=== PATIENT | female | born 1990 | race Caucasian/White ===

== ENCOUNTER 2017-04-06 09:56 | Emergency (ER) | payer BC ==
--- NOTE | 2017-04-06 10:26 | UC ---
Skin Complaint HPI - HPI Summary HPI Summary: 26 y/o female s/p trip to [facility] with new itchy "bites" on ankles, calves, arms. Sparing trunk/ chest, upper thigh. No fever, chills, other than itchy feeling normal. wass on honeymoon, possible chance of getting in future. h/o UC, last colonoscopy negative. no meds. - History of Current Complaint Time Seen by Provider: 04/06/17 10:25 Stated Complaint: SKIN COMPLAINT Hx Obtained From: Patient Hx Last Menstrual Period: 06/08/16 Onset/Duration: Sudden Onset, Lasting Days Skin Exposure Onset/Duration: Days Ago Onset Severity: Mild Current Severity: Mild - Allergy/Home Medications Allergies/Adverse Reactions: Allergies Allergy/AdvReac Type Severity Reaction Status Date / Time Sulfa Antibiotics Allergy Unknown Unknown Verified 04/06/17 10:22 Reaction Details Codeine Allergy chest Verified 04/06/17 10:22 tightness Home Medications: Home Medications Acetaminophen [Acetaminophen Extra Stren] 500 mg PO Q6H PRN 04/06/17 [History Confirmed 04/06/17] Review of Systems Constitutional: Negative Skin: Rash - bite pattern ENT: Negative Respiratory: Negative Cardiovascular: Negative Gastrointestinal: Negative Genitourinary: Negative Motor: Negative Neurovascular: Negative Musculoskeletal: Negative Neurological: Negative Psychological: Negative All Other Systems Reviewed And Are Negative: Yes PMH/Surg Hx/FS Hx/Imm Hx Previously Healthy: Yes - ? UC - Surgical History Surgical History: Yes Surgery Procedure, Year, and Place: wisdom teeth - Family History Known Family History: Positive: Respiratory Disease - asthma - Social History Alcohol Use: Occasionally Substance Use Type: None Smoking Status (MU): Never Smoked Tobacco Physical Exam Triage Information Reviewed: Yes Appearance: Well-Appearing, No Pain Distress, Well-Nourished Eye Exam: Normal Neck exam: Normal Abdomen Description: Positive: Other: - no rash on abd, trunk, chest Neurological Exam: Normal Psychological Exam: Normal Skin: Positive: rashes - follicular raised erythematous papules in random pattern on lower legs, lower arms, and lower neck/ upper back. Sparing of trunk, thighs, abdomen, face. non tender to palpation, no discharge noted. + firm head over some. all small, < or = 1mm. Course/Dx - Course Course Of Treatment: consistent with insect bites. Patient concerned about sand fleas, educated on treatment of snad fleas. hydrocortisone cream given, educated on Zika virus with possible in future. F/U with PCP if symptoms not relieved within 3-4 days - Differential Diagnoses - Skin Complaint Differential Diagnoses: Contact Dermatitis, Drug Rash, Eczema, Frostbite, Poison Margaret - Diagnoses Provider Diagnoses: insect bites Discharge - Discharge Plan Condition: Good Disposition: HOME Prescriptions: Hydrocortisone 1% CREAM* 1 applic TOPICAL TID #1 tube Patient Education Materials: Insect Bite or Sting (ED) Additional Instructions: - hydrocortisone cream over bites 2-3 times a day - benadryl to help sleep at night if itchy - Follow up within PCP within 3-4 days if no improvement - Discuss with [employer] prior to getting - Return with fever, chills, increasing rash
[2017-04-06 10:28] VITALS: BP 110/71
== END 2017-04-06 10:54 | disposition home or self-care (01) ==
LOC: UCCORT 09:56
DX: S80.862A Insect bite (nonvenomous), left lower leg, initial encounter (principal); S80.861A Insect bite (nonvenomous), right lower leg, initial encounter; S50.862A Insect bite (nonvenomous) of left forearm, initial encounter; S50.861A Insect bite (nonvenomous) of right forearm, initial encounter; S10.96XA Insect bite of unspecified part of neck, initial encounter; S20.469A Insect bite (nonvenomous) of unspecified back wall of thorax, initial encounter; W57.XXXA Bitten or stung by nonvenomous insect and other nonvenomous arthropods, initial encounter; Y93.9 Activity, unspecified; Y92.9 Unspecified place or not applicable; Z88.5 Allergy status to narcotic agent; Z88.2 Allergy status to sulfonamides
CPT/HCPCS: 99212; G0463

== ENCOUNTER 2017-08-12 15:08 | Emergency (ER) | payer BC ==
[2017-08-12 15:30] VITALS: BP 132/74
--- NOTE | 2017-08-12 15:35 | UC ---
Throat Pain/Nasal Mikel HPI - HPI Summary HPI Summary: 27 year old female with sinus pressure. PT IS 10 WEEKS . HERE TODAY WITH C/O SINUS PAIN AND PRESSURE FOR THREE DAYS. SOME BLOODY SINUS DRAINAGE. NO CHILLS, OR FEVER SHE IS AWARE OF. DRY COUGH. PT'S MOM HAS MONO, AND HER HAS HAD BRONCHITIS . PT HAS BEEN VOMITING ON A DAILY BASIS FOR 6 WEEKS WHICH SHE THINKS IS FROM HER . Per patient mom has mono now for the 2nd time and patient states she had mono 2 times as well so she is concerned for mono as well. [ End ] - History of Current Complaint Chief Complaint: UCRespiratory Stated Complaint: SINUSES Time Seen by Provider: 08/12/17 15:31 Hx Obtained From: Patient Hx Last Menstrual Period: 06/01/17 ?: Yes - 10 weeks Onset/Duration: Gradual Onset Severity: Moderate Cough: Productive Associated Signs & Symptoms: Positive: Sinus Discomfort, Nasal Discharge - Allergies/Home Medications Allergies/Adverse Reactions: Allergies Allergy/AdvReac Type Severity Reaction Status Date / Time Sulfa Antibiotics Allergy Unknown Unknown Verified 08/12/17 15:20 Reaction Details Codeine Allergy chest Verified 08/12/17 15:20 tightness Home Medications: Home Medications Calcium Carbonate CHEW TAB* [Tums*] 1,000 mg PO BID PRN 08/12/17 [History Confirmed 08/12/17] Vitamin [Calna] 1 tab PO DAILY 08/12/17 [History Confirmed 08/12/17] PMH/Surg Hx/FS Hx/Imm Hx Previously Healthy: Yes GI/ History: Other - UC Other GI/ History: uc - Surgical History Surgical History: Yes Surgery Procedure, Year, and Place: wisdom teeth - Family History Known Family History: Positive: Respiratory Disease - asthma - Social History Occupation: Employed Full-time Alcohol Use: None Substance Use Type: None Smoking Status (MU): Never Smoked Tobacco - Immunization History Most Recent Influenza Vaccination: NONE Review of Systems Constitutional: Fatigue ENT: Nasal Discharge, Sinus Congestion, Sinus Pain/Tenderness Respiratory: Cough Gastrointestinal: Nausea Is Patient Immunocompromised?: No All Other Systems Reviewed And Are Negative: Yes Physical Exam Triage Information Reviewed: Yes Appearance: Well-Appearing, No Pain Distress, Ill-Appearing Vital Signs: Initial Vital Signs Temp 98.6 F 08/12/17 15:21 Pulse 82 08/12/17 15:21 Resp 18 08/12/17 15:21 BP 132/74 08/12/17 15:21 Pulse Ox 99 08/12/17 15:21 Vital Signs Reviewed: Yes Eye Exam: Normal ENT Exam: Normal ENT: Positive: Nasal congestion, TM dull Dental Exam: Normal Neck exam: Normal Respiratory Exam: Normal Cardiovascular Exam: Normal Musculoskeletal Exam: Normal Neurological Exam: Normal Psychological Exam: Normal Skin Exam: Normal Throat Pain/Nasal Course/Dx - Course Course Of Treatment: test for mono with her recent exposure and get IgM for reactivation status. treat supportively for 3-4 days and if worsens then may start antibiotics. discussed humidifieruse if any bloody nose. RTO if any concerns. - Differential Dx/Diagnosis Differential Diagnosis/HQI/PQRI: Laryngitis, Mononucleosis, Otitis Media, Pharyngitis, Sinusitis, URI Provider Diagnoses: Sinusitis Discharge - Discharge Plan Condition: Good Disposition: HOME Prescriptions: Amoxicillin PO (*) [Amoxicillin 875 MG (*)] 875 mg PO BID #20 tab Patient Education Materials: Sinusitis (ED) Referrals: Bishop Cai MD [Primary Care Provider] - 4 Days Additional Instructions: As we discussed you likely have a viral sinus infection. You were tested for [place] at this time since your mother has it. If your symptoms worsen over the next 3-4 days you are at that time advised to start the antibiotics. For nausea please consider Vitamin B6 25 mg three times a day for nausea during .
[2017-08-12 20:33] LABS: EBV Response YES
[2017-08-12 20:37] LABS: Hematocrit 37 % (35-47); Hemoglobin 12.6 g/dl (12.0-16.0); Mean Corpuscular HGB Conc 34 g/dl (31-36); Mean Corpuscular Hemoglobin 30 pg (27-31); Mean Corpuscular Volume 89 fL (80-97); Mean Platelet Volume 8 um3 (7.4-10.4); Red Blood Count 4.14 10^6/ul (4.0-5.4); Red Cell Distribution Width 12 % (10.5-15)
[2017-08-12 20:47] LABS: Mono Internal Control QC Line Present
== END 2017-08-12 16:05 | disposition home or self-care (01) ==
LOC: UCCORT 15:08
DX: O26.891 Other specified pregnancy related conditions, first trimester (principal); Z3A.10 10 weeks gestation of pregnancy; J32.9 Chronic sinusitis, unspecified
CPT/HCPCS: 36415; 85025; 86308; 86664; 86665; 99212; G0463

== ENCOUNTER 2017-09-20 18:32 | Emergency (ER) | payer BC ==
[2017-09-20 21:03] VITALS: BP 119/56
--- NOTE | 2017-09-20 21:37 | UC ---
FLU HPI - HPI Summary HPI Summary: 27 y/o female presents to the urgent care c/o sore throat, RT ear pain with mild SIMMONS since this morning. pt states 2 episodes of diarrhea this morning. Pt has not taking anything to alleviate symptoms. Pt is 16 weeks . Pain is 8/10 with swallowing. Mild nasal congestion with bodty aches. Pt denies fever, SOB, cough, abdominal pain, N/V, or urinary symptoms. - History of Current Complaint Chief Complaint: UCGeneralIllness Stated Complaint: SORE THROAT,HEADACHE,NAUSEA,DIARRHEA Time Seen by Provider: 09/20/17 21:17 Hx Obtained From: Patient Hx Last Menstrual Period: 06/01/17 ?: Yes Onset/Duration: Gradual Onset, Lasting Days - today, Still Present Severity Currently: Mild Severity Initially: Moderate Pain Intensity: 8 - sore throat Pain Scale Used: 0-10 Numeric Associated Signs & Symptoms: Positive: Sore Throat, Nasal Congestion, Headache, Diarrhea - 2 episodes this morning - Risk Factors Influenza Risk Factors: Negative - Allergy/Home Medications Allergies/Adverse Reactions: Allergies Allergy/AdvReac Type Severity Reaction Status Date / Time Sulfa Antibiotics Allergy Unknown Unknown Verified 09/20/17 21:02 Reaction Details Codeine Allergy chest Verified 09/20/17 21:02 tightness Home Medications: Home Medications Omeprazole CAP* [Prilosec CAP* 20 MG] 20 mg PO DAILY 09/20/17 [History Confirmed 09/20/17] PMH/Surg Hx/FS Hx/Imm Hx Previously Healthy: Yes Other GI/ History: Ulcerative colitis which has resolved as per last colonoscopy - Surgical History Surgical History: Yes Surgery Procedure, Year, and Place: wisdom teeth - Family History Known Family History: Positive: Hypertension, Diabetes, Respiratory Disease - asthma - Social History Occupation: Employed Full-time Lives: With Family Alcohol Use: None Substance Use Type: None Smoking Status (MU): Never Smoked Tobacco - Immunization History Most Recent Influenza Vaccination: NONE Review of Systems Constitutional: Negative, Other - body aches Skin: Negative Eyes: Negative ENT: Sore Throat, Ear Ache - RT ear pain, Nasal Discharge Respiratory: Negative Cardiovascular: Negative Gastrointestinal: Diarrhea - 2 episodes this morning Genitourinary: Negative Motor: Negative Neurovascular: Negative Musculoskeletal: Negative Neurological: Headache Psychological: Negative Is Patient Immunocompromised?: No All Other Systems Reviewed And Are Negative: Yes Physical Exam Triage Information Reviewed: Yes Vital Signs: Initial Vital Signs Temp 98.2 F 09/20/17 21:00 Pulse 86 09/20/17 21:00 Resp 15 09/20/17 21:00 BP 119/56 09/20/17 21:00 Pulse Ox 100 09/20/17 21:00 - Additional Comments VITAL SIGNS: Reviewed. GENERAL: Patient is a well developed and nourished female who is sitting comfortable in the examining table. Patient is not in any acute respiratory distress. HEAD AND FACE: No signs of trauma. No ecchymosis, hematomas or skull depressions. No sinus tenderness. edematous erythematous nasal mucosa with yellowish discharge, EYES: PERRLA, EOMI x 2, No injected conjunctiva, clear watery eyes, no nystagmus. No photophobia. EARS: Hearing grossly intact. Ear canals and tympanic membranes are within normal limits. MOUTH: Positive pharynx with erythema, no exudates,no palatal petechiae. No B/ L tonsillar enlargement Uvula in midline. NECK: Supple, trachea is midline, Positive anterior cervical lymphadenopathy, no JVD, no carotid bruit, no c-spine tenderness, neck with full ROM. No meningeal signs, no Kernig's or brudzinskis signs. CHEST: Symmetric, no tenderness at palpation LUNGS: Clear to auscultation bilaterally. No wheezing or crackles. CVS: Regular rate and rhythm, S1 and S2 present, no murmurs or gallops appreciated. ABDOMEN: Soft, non-tender. No signs of distention. No rebound no guarding, and no masses palpated. Bowel sounds are normal. EXTREMITIES: FROM in all major joints, no edema, no cyanosis or clubbing. NEURO: Alert and oriented x 3. No acute neurological deficits. Speech is normal and follows commands. SKIN: Dry and warm Flu Course/Dx - Course Course Of Treatment: 27 y/o female presents to the urgent care c/o sore throat, RT ear pain with mild SIMMONS since this morning. pt states 2 episodes of diarrhea this morning. Pt has not taking anything to alleviate symptoms. Pt is 16 weeks . Pain is 8/10 with swallowing. Mild nasal congestion with bodty aches. Pt denies fever, SOB, cough, abdominal pain, N/V, or urinary symptoms. Hx obtained. Rapid strep ordered, result: negative. Influenza A&B ordered: result: negative.Pt given tylenol PO at the clinic to alleviate sore throat. Rx Tylenol PO to alleviates symptoms of pain and swelling. Advised on hand washing to avoid spreading. Pt advised increase fluid intake, to rest, eat well and avoid strenuous exercise. If symptoms do not improve or worsen advised to return to the urgent care or f/u with her PCP for further evaluation and treatment. Pt understood and agreed - Differential Dx/Diagnosis Differential Diagnosis/HQI/PQRI: Bronchitis, Influenza, Upper Respiratory Infection, Other - pharyngitis, viral syndrome Provider Diagnoses: 1- Acute viral syndrome. 2- Pharyngitis Discharge - Discharge Plan Condition: Stable Disposition: HOME Prescriptions: Acetaminophen TAB* [Tylenol TAB*] 650 mg PO Q6H PRN #20 tab PRN Reason: Sore Throat Patient Education Materials: Viral Syndrome (ED) Forms: *Work Release Referrals: Prema Ferguson MD [Primary Care Provider] - 2 Days Additional Instructions: Your Influenza and strep test are negative. 1-Please take Tylenol PO q6-8hrs prn as instructed after meals to alleviate symptoms. Increase fluid intake, eat well, rest and avoid strenuous exercise. 2-If symptoms do not improve or worsen please return to the urgent care or f/u with your PCP in 2 days for further evaluation and treatment.
[2017-09-20] MEDS ORDERED: Acetaminophen TAB* 325 MG PO ONE (21:55)
== END 2017-09-20 22:10 | disposition home or self-care (01) ==
LOC: UCCORT 18:32
DX: B34.9 Viral infection, unspecified (principal); J02.9 Acute pharyngitis, unspecified; H92.01 Otalgia, right ear; Z88.5 Allergy status to narcotic agent; Z88.2 Allergy status to sulfonamides
CPT/HCPCS: 87502; 87651; 99212; A9270-GY; G0463

== ENCOUNTER 2018-04-13 09:34 | Emergency (ER) | payer BC ==
[2018-04-13 09:59] VITALS: BP 105/69
[2018-04-13] MEDS ORDERED: Fluorescein Sod TOPICAL 0.6* 0.6 MG TEST OPHTHALMIC ONE ×2 (10:00)
[2018-04-13] MEDS ORDERED: BSS OPTH.SOL* BTL ONE (10:00)
[2018-04-13] MEDS ORDERED: Tetracaine 0.5% OPTH.SOL 4 ML* 1 DROP BTL ONE (10:00)
--- NOTE | 2018-04-13 10:12 | UC ---
Eye Complaint HPI - HPI Summary HPI Summary: Pt presents with c/o left eye pain with clear moderate amount of dishcarge after family pet/pupy jumped up at pt and scratched left eye with toenail. Pt states that left eye bled a small to moderate amount immediately after injury but has since resolved. Pt now c/o left eye pain, feeling of FB in eye , and moderate amount of clear viscous fluid from left eye. - History of Current Complaint Chief Complaint: UCEye Stated Complaint: LEFT EYE COMPLAINT Time Seen by Provider: 04/13/18 09:51 Hx Obtained From: Patient Hx Last Menstrual Period: Gave one month ago ?: No Onset/Duration: Sudden Onset, Lasting Hours Timing: Constant Severity Initially: Moderate Severity Currently: Moderate Pain Intensity: 7 Character: Sharp, Dull, Foreign Body Sensation Associated Signs And Symptoms: Positive: Photophobia, Drainage (Clear), Vision Impairment Left - Risk Factors Penetrating Injury Risk Factor: Negative Globe Rupture Risk Factors: Negative Acute Glaucoma Risk Factors: Negative Optic Artery Occlusion Risk Factors: Negative - Allergies/Home Medications Allergies/Adverse Reactions: Allergies Allergy/AdvReac Type Severity Reaction Status Date / Time codeine Allergy Chest Pain Verified 04/13/18 09:52 Sulfa (Sulfonamide Allergy Rash Verified 04/13/18 09:52 Antibiotics) Home Medications: Home Medications Docusate CAP* [Colace Cap*] 100 mg PO DAILY 04/13/18 [History Confirmed 04/13/18 ] Vitamin TAB* 1 tab PO DAILY 04/13/18 [History Confirmed 04/13/18] PMH/Surg Hx/FS Hx/Imm Hx Previously Healthy: Yes - Surgical History Surgical History: Yes Surgery Procedure, Year, and Place: wisdom teeth - Family History Known Family History: Positive: Hypertension, Diabetes, Respiratory Disease - asthma - Social History Occupation: Employed Full-time Lives: With Family Alcohol Use: Occasionally Substance Use Type: None Smoking Status (MU): Never Smoked Tobacco Have You Smoked in the Last Year: No - Immunization History Most Recent Influenza Vaccination: NONE Most Recent Tetanus Shot: January 2018 Review of Systems Constitutional: Negative Skin: Negative Eyes: Blurred Vision, Drainage ENT: Negative Respiratory: Negative Cardiovascular: Negative Gastrointestinal: Negative Genitourinary: Negative Motor: Negative Neurovascular: Negative Musculoskeletal: Negative Neurological: Negative Psychological: Negative Is Patient Immunocompromised?: No All Other Systems Reviewed And Are Negative: Yes Physical Exam Triage Information Reviewed: Yes Appearance: Pain Distress Vital Signs: Initial Vital Signs Temp 98.5 F 04/13/18 09:49 Pulse 80 04/13/18 09:49 Resp 16 04/13/18 09:49 BP 105/69 04/13/18 09:49 Pulse Ox 98 04/13/18 09:49 Vital Signs Reviewed: Yes Eyes: Positive: Discharge - clear, Other: - no uptake with flurocein uptake ENT Exam: Normal Dental Exam: Normal Neck exam: Normal Respiratory Exam: Normal Respiratory: Positive: No respiratory distress Musculoskeletal Exam: Normal Neurological Exam: Normal Psychological Exam: Normal Skin Exam: Normal Eye Complaint Course/Dx - Differential Dx/Diagnosis Differential Diagnosis/HQI/PQRI: Corneal Abrasion, Foreign Body Provider Diagnoses: left eye injury Discharge - Sign-Out/Discharge Documenting (check all that apply): Patient Departure - Discharge Plan Condition: Stable Disposition: HOME Prescriptions: Ofloxacin 0.3%(Ophth)(Nf) [Ocuflox OPTH 0.3%(NF)] 3 drop LEFT EYE Q8H 7 Days #1 btl Patient Education Materials: Blurred Vision (ED), Eye Pain (ED) Referrals: Prema Ferguson MD [Primary Care Provider] - If Needed Shakeel Deutsch OD [Doctor of Osteopathy] - 04/13/18 1:20 pm - Billing Disposition and Condition Condition: STABLE Disposition: Home
== END 2018-04-13 10:25 | disposition home or self-care (01) ==
LOC: UCCORT 09:34
DX: S05.92XA Unspecified injury of left eye and orbit, initial encounter (principal); W54.8XXA Other contact with dog, initial encounter; Y93.89 Activity, other specified; Y92.009 Unspecified place in unspecified non-institutional (private) residence as the place of occurrence of the external cause; Z88.5 Allergy status to narcotic agent; Z88.1 Allergy status to other antibiotic agents
CPT/HCPCS: 99212; A9270-GY; G0463

== ENCOUNTER 2018-08-25 20:58 | Emergency (ER) | payer BC ==
[2018-08-25 21:09] VITALS: BP 116/79
--- NOTE | 2018-08-25 21:11 | UC ---
Respiratory Complaint HPI - HPI Summary HPI Summary: Pt c/o cough, dizziness, fatigue X 6 weeks. Pt is 6 months . Pt reports that she is UTD with whooping cough vaccine with booster gotten during . Pt reports intermittent fever. - History of Current Complaint Chief Complaint: UCRespiratory Stated Complaint: COUGH Time Seen by Provider: 08/25/18 21:10 Hx Obtained From: Patient Hx Last Menstrual Period: Gave six months ago ?: No Onset/Duration: Gradual Onset, Lasting Weeks, Still Present Timing: Intermittent Episodes Severity Initially: Mild Severity Currently: Moderate Pain Intensity: 0 Character: Cough: Nonproductive Aggravating Factors: Exertion, Deep Breaths, Recumbent Position Alleviating Factors: Nothing Associated Signs And Symptoms: Positive: Fever, Chills, Dizziness, Nasal Congestion Related History: Seasonal Allergies - Risk Factors Pulmonary Embolism Risk Factors: Negative Cardiac Risk Factors: Negative Pseudomonas Risk Factors: Negative - Allergies/Home Medications Allergies/Adverse Reactions: Allergies Allergy/AdvReac Type Severity Reaction Status Date / Time codeine Allergy Chest Pain Verified 08/25/18 21:05 Sulfa (Sulfonamide Allergy Rash Verified 08/25/18 21:05 Antibiotics) PMH/Surg Hx/FS Hx/Imm Hx Previously Healthy: Yes - Surgical History Surgical History: Yes Surgery Procedure, Year, and Place: wisdom teeth - Family History Known Family History: Positive: Hypertension, Diabetes, Respiratory Disease - asthma - Social History Occupation: Employed Full-time Lives: With Family Alcohol Use: Occasionally Substance Use Type: None Smoking Status (MU): Never Smoked Tobacco Have You Smoked in the Last Year: No - Immunization History Most Recent Influenza Vaccination: NONE Most Recent Tetanus Shot: January 2018 Review of Systems All Other Systems Reviewed And Are Negative: Yes Constitutional: Positive: Fever, Chills, Fatigue Skin: Positive: Negative Eyes: Positive: Negative ENT: Positive: Nasal Discharge Respiratory: Positive: Shortness Of Breath, Cough Cardiovascular: Positive: Negative Gastrointestinal: Positive: Negative Genitourinary: Positive: Negative Motor: Positive: Negative Neurovascular: Positive: Negative Musculoskeletal: Positive: Myalgia Neurological: Positive: Headache Psychological: Positive: Negative Is Patient Immunocompromised?: No Physical Exam Triage Information Reviewed: Yes Appearance: Ill-Appearing Vital Signs: Initial Vital Signs Temp 97.2 F 08/25/18 21:05 Pulse 93 08/25/18 21:05 Resp 16 08/25/18 21:05 BP 116/79 08/25/18 21:05 Pulse Ox 100 08/25/18 21:05 Vital Signs Reviewed: Yes Eye Exam: Normal ENT: Positive: Nasal congestion Dental Exam: Normal Neck exam: Normal Respiratory: Positive: Normal breath sounds, No respiratory distress Cardiovascular Exam: Normal Musculoskeletal Exam: Normal Neurological Exam: Normal Psychological Exam: Normal Skin Exam: Normal UC Diagnostic Evaluation - Laboratory O2 Sat by Pulse Oximetry: 100 - Radiology Radiology Interpretation Completed By: ED Physician - question of pneumonia Respiratory Course/Dx - Differential Dx/Diagnosis Differential Diagnosis/HQI/PQRI: Bronchitis Provider Diagnosis: Pneumonia Discharge - Sign-Out/Discharge Documenting (check all that apply): Patient Departure All imaging exams completed and their final reports reviewed: No - Discharge Plan Condition: Stable Disposition: HOME Prescriptions: Albuterol HFA INHALER* [Ventolin HFA Inhaler*] 1 puff INH Q6H PRN #1 mdi PRN Reason: Sob/Wheezing Azithromycin TAB* [Zithromax TAB (Z-JOSESITO) 250 mg #6 tabs] 250 mg PO DAILY #4 tab predniSONE TAB* [Deltasone 20 MG TAB*] 20 mg PO DAILY #3 tab Patient Education Materials: Pneumonia (ED) Referrals: Prema Ferguson MD [Primary Care Provider] - As Soon As Possible - Billing Disposition and Condition Condition: STABLE Disposition: Home
[2018-08-25] MEDS ORDERED: Azithromycin TAB* 250 MG PO ONE (21:39)
== END 2018-08-25 21:48 | disposition home or self-care (01) ==
LOC: UCCORT 20:58
DX: J18.9 Pneumonia, unspecified organism (principal); Z88.2 Allergy status to sulfonamides; Z88.5 Allergy status to narcotic agent
CPT/HCPCS: 71046; 99212; A9270-GY; G0463

== ENCOUNTER 2019-07-01 13:46 | Emergency (ER) | payer BC ==
[2019-07-01 16:23] VITALS: BP 108/71
--- NOTE | 2019-07-01 16:48 | UC ---
Throat Pain/Nasal Mikel HPI - HPI Summary HPI Summary: Patient is a 29-year-old female presenting with sore throat times one day and is concerned for possible strep throat infection. Patient denies other URI symptoms including ear pain, sinus tenderness, nasal congestion. Notes intermittent chills. Denies cough, shortness breath, and wheezing. Denies nausea, vomiting, diarrhea, abdominal pain. Denies any known fevers. - History of Current Complaint Chief Complaint: UCRespiratory Stated Complaint: SORE THROAT Hx Obtained From: Patient Hx Last Menstrual Period: 06/13/19 Severity: Moderate Pain Intensity: 7 Pain Scale Used: 0-10 Numeric - Allergies/Home Medications Allergies/Adverse Reactions: Allergies Allergy/AdvReac Type Severity Reaction Status Date / Time codeine Allergy Chest Pain Verified 07/01/19 16:16 Sulfa (Sulfonamide Allergy Rash Verified 07/01/19 16:16 Antibiotics) Home Medications: Home Medications Acetaminophen [Pain Relief Extra Strength] 1,000 mg PO PRN 07/01/19 [History] PMH/Surg Hx/FS Hx/Imm Hx GI/ History: Other - ulcerative colitis - Surgical History Surgical History: Yes Surgery Procedure, Year, and Place: wisdom teeth - Family History Known Family History: Positive: Hypertension, Diabetes, Respiratory Disease - asthma - Social History Alcohol Use: Occasionally Substance Use Type: None Smoking Status (MU): Never Smoked Tobacco Have You Smoked in the Last Year: No - Immunization History Most Recent Influenza Vaccination: NONE Most Recent Tetanus Shot: January 2018 Review of Systems All Other Systems Reviewed And Are Negative: Yes Constitutional: Positive: Negative. Negative: Fever, Chills, Fatigue ENT: Positive: Sore Throat. Negative: Ear Ache, Nasal Discharge, Sinus Congestion, Sinus Pain/Tenderness Respiratory: Positive: Negative. Negative: Shortness Of Breath, Cough Cardiovascular: Positive: Negative. Negative: Palpitations, Chest Pain Gastrointestinal: Positive: Negative. Negative: Abdominal Pain, Vomiting, Nausea Musculoskeletal: Positive: Negative Neurological: Positive: Negative Physical Exam Triage Information Reviewed: Yes Appearance: Well-Appearing, No Pain Distress, Well-Nourished Vital Signs: Initial Vital Signs Temp 99.2 F 07/01/19 16:17 Pulse 90 07/01/19 16:17 Resp 16 07/01/19 16:17 BP 108/71 07/01/19 16:17 Pulse Ox 98 07/01/19 16:17 Lab Results 07/01/19 Range/Units 16:39 Group A Strep Rapid Negative (Negative) Vital Signs Reviewed: Yes Eyes: Positive: Conjunctiva Clear ENT: Positive: Hearing grossly normal, Pharyngeal erythema, TMs normal, Uvula midline. Negative: Nasal congestion, Nasal drainage, Tonsillar swelling, Tonsillar exudate, Trismus, Muffled voice, Hoarse voice, Sinus tenderness Neck exam: Normal Neck: Positive: Supple, Nontender, No Lymphadenopathy Respiratory Exam: Normal Respiratory: Positive: Lungs clear, Normal breath sounds, No respiratory distress Cardiovascular Exam: Normal Cardiovascular: Positive: RRR Neurological: Positive: Alert Psychological: Positive: Age Appropriate Behavior Throat Pain/Nasal Course/Dx - Course Course Of Treatment: Educated patient on pharyngitis and likely viral etiology. Instructed to continue with symptomatic treatment and to follow up with PCP if symptoms persist. Patient voiced understanding and agreed with the treatment plan. - Differential Dx/Diagnosis Provider Diagnosis: Pharyngitis Discharge ED - Sign-Out/Discharge Documenting (check all that apply): Patient Departure All imaging exams completed and their final reports reviewed: No Studies - Discharge Plan Condition: Stable Disposition: HOME Patient Education Materials: Pharyngitis (ED) Referrals: Prema Ferguson MD [Primary Care Provider] - If Needed Additional Instructions: As discussed, you tested negative for strep throat today. You may continue to take ibuprofen and/or tylenol as directed for fever and pain relief. You may use over the counter throat sprays or lozenges for symptomatic relief. Get plenty of rest and fluids. Follow up with your PCP if symptoms worsen or do not resolve in 7 days. Go to the emergency room if you experience fever higher than 105, nausea and vomiting, or difficulty breathing. - Billing Disposition and Condition Condition: STABLE Disposition: Home
== END 2019-07-01 16:58 | disposition home or self-care (01) ==
LOC: UCCORT 13:46
DX: J02.9 Acute pharyngitis, unspecified (principal); Z88.5 Allergy status to narcotic agent; Z88.2 Allergy status to sulfonamides
CPT/HCPCS: 87651; 99211; G0463